=== PATIENT | female | born 1960 | race Caucasian/White ===

== ENCOUNTER 2019-10-09 10:26 | Emergency (ER) | payer BC ==
[~2019-10-09] VITALS: Ht 160 cm; Wt 63.6 kg
[2019-10-09 10:38] VITALS: BP 141/77
== END 2019-10-09 10:49 | disposition home or self-care (01) ==
LOC: ER 10:27
DX: B08.4 Enteroviral vesicular stomatitis with exanthem (principal); R50.9 Fever, unspecified; J02.9 Acute pharyngitis, unspecified; Z88.2 Allergy status to sulfonamides
CPT/HCPCS: 99281